=== PATIENT | female | born 1985 | race Caucasian/White ===

== ENCOUNTER 2018-02-26 15:34 | Emergency (ER) | payer OTHER ==
[2018-02-26] MEDS ORDERED: TETANUS/DIPHTHERIA/PERTUSSIS 0.5 ML SYRINGE IM ONE (15:57)
[2018-02-26 15:59] VITALS: BP 122/67
--- NOTE | 2018-02-26 16:00 | ED Physician Documentation ---
PD HPI UPPER EXT INJURY - Stated complaint Stated Complaint: R HAND LAC - History obtained from History obtained from: Patient - History of Present Illness Location: Right, Hand Type of injury: Laceration (on madolin slicer) Where injury occurred: Work Timing - onset: Today Pain level max: 0 Review of Systems Constitutional: reports: Reviewed and negative Cardiac: reports: Reviewed and negative Respiratory: reports: Reviewed and negative PD PAST MEDICAL HISTORY - Present Medications Home Medications: Ambulatory Orders Medication Instructions Recorded Confirmed No Known Home Medications [No 02/26/18 02/26/18 Known Home Medications] - Allergies Allergies/Adverse Reactions: Allergies Allergy/AdvReac Type Severity Reaction Status Date / Time No Known Drug Allergies Allergy Verified 02/26/18 15:59 PD ED PE NORMAL - Vitals Vital signs reviewed: Yes - General General: Alert and oriented X 3, No acute distress - Extremities Extremities: Other (1 cm shallow lac R hand on medial side/hypothenenar area) - Neuro Neuro: Alert and oriented X 3, Normal speech Results - Vitals Vitals: Vital Signs - 24 hr 02/26/18 15:56 Temperature 36.8 C Heart Rate 92 Respiratory 16 Rate Blood Pressure 122/67 O2 Saturation 98 Oxygen O2 Source Room air Procedures - Laceration (location) R hand Length in cm: 1 Wound type: Linear, Superficial Wound Preparation: Irrigated copiously NS Skin layer closure: Dermabond Other: Tetanus booster given Complexity: Simple Departure - Departure Disposition: 01 Home, Self Care Clinical Impression: Laceration of right hand Qualifiers: Encounter type: initial encounter Foreign body presence: without foreign body Qualified Code(s): S61.411A - Laceration without foreign body of right hand, initial encounter Condition: Good Record reviewed to determine appropriate education?: Yes Instructions: ED Laceration Ext Skin Glue
== END 2018-02-26 16:39 | disposition home or self-care (01) ==
LOC: ED 15:34
DX: S61.411A Laceration without foreign body of right hand, initial encounter (principal); W26.0XXA Contact with knife, initial encounter; Z23 Encounter for immunization
CPT/HCPCS: 12001; 90471; 99282; 99283

== ENCOUNTER 2021-08-21 15:36 | Outpatient (CLI) | payer OTHER ==
[2021-08-21 16:58] VITALS: BP 120/86
--- NOTE | 2021-08-21 16:58 | SLEEP CARE CONSULTATION ---
Information from patient questionnaire entered by Nadir Fabian. I have reviewed and concur with the information entered by Nadir Fabian. This document represents the service I personally performed and the decisions made by me, Arabella Garcia ARNP. History of Present Illness Service Date and Time: 08/21/2021 1536 Reason for Visit: New patient Chief Complaint: reports: Unrefreshed sleep, Fatigue, Frequent awakenings at night Date of Onset: 1.5 years Usual bedtime: 9:00 PM Time it takes to fall asleep: 2-3 hrs Snores at night: No (Not really) Observed to quit breathing while asleep: No Sleeps alone due to snoring: No Number of times waking at night: 2-3 Reasons for waking at night: reports: Other (Unknown reason). denies: Choking, Snoring, Gasping for air Toss, Turn, or Twitch while sleeping: Yes Recalls having dreams: No (rarely remembers them) Usually gets out of bed at: 4:00-5:00 Feels refreshed in the morning: No Morning headache: Yes (30 min - 1 hour; 1-2 times a week) Sleepy or fatigued during the day: Yes Ever fallen asleep while driving: No Takes day naps: No Dreams during day naps: No Prior sleep studies: No Additional HPI information: I had the pleasure of seeing SHIVANI CHOI today regarding the possibility of her having a sleep disorder. Her current complaints are fatigue, frequent night awakenings, insomnia and unrefreshed sleep. Her has not told her she snores or has any pauses in breathing when sleeping. She has times when she wakes up shaking with her heart pounding. She states it does not happen every night but often enough to be disturbing. It can take 2-3 hours for her to fall asleep and she wakes up 2-3 times a night. She only sleeps 5-6 hours normally. She feels like she is only sleeping lightly on average. She has tried multiple o russel the counter remedies to go to sleep with varied results. She has some muscle relaxers for her chronic neck issues and this helps her sleep fall asleep better than anything else. She has a family history of sleep apnea. 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 Patient is and lives in [place]. Have you smoked in the past 12 months: No Alcohol use: No Caffeine use: Yes Caffeine amount and frequency: 2 cups, 1/2 caff coffee Family History Family history of sleep disordered breathing: Yes Family Hx Sleep Apnea: Father: Sleep apnea - Untreated, Grandparent: Sleep apnea - Treated (Uncle), Other: Sleep apnea - Treated Allergies and Home Medications Drug allergies reviewed: Yes (NKDA) Home medication list reviewed: Yes Allergy and home medication list: Cyclobenzaprine, prn for chronic neck issues Review of Systems Cardiovascular: denies: high blood pressure Gastrointestinal: reports: nausea. denies: heartburn Neurological: denies: headaches Psychiatric: denies: anxiety, depression, mood disorder Ear/Nose/Throat: reports: wisdom teeth removed. denies: injury to nose, tonsillectomy Musculoskeletal: reports: neck pain Immunologic: reports: allergies to food or environment (occasional seasonal allergies) Physical Exam Blood Pressure: 120/86 Cuff size: wrist Heart Rate: 84 O2 Saturation: 99 Height: 5 ft 1 in Weight: 126 lb Body Mass Index: 23.8 BMI Classification: Healthy weight Neck circumference: 13 (inches) Nostrils: patent to airflow Mouth and throat: narrow oropharynx Soft palate: long Hard palate: normal Uvula: normal Uvula visualization: 100% Mallampati Class I Tongue: enlarged in size with teeth hickey on lateral edges Neck: normal w/o lymphadenopathy or thyromegaly Heart: regular rate and rhythm Lungs: clear bilaterally Impression and Plan 1. Suspected Obstructive Sleep Apnea-Hypopnea Syndrome, as suggested by a history of morning headache, frequent awakening during the night, unrefreshed sleep, and excessive daytime sleepiness. Narrow oropharynx and obesity are common predisposing factors for obstructive sleep apnea-hypopnea syndrome. I recommend proceeding to polysomnography to confirm the diagnosis and to assess severity. If the patient has significant sleep disordered breathing, a manual CPAP titration study will also be performed to find the optimal treatment pressure. I informed the patient of what the sleep studies involve and after so me discussion, obtained agreement to proceed. The pathophysiology of obstructive sleep apnea-hypopnea syndrome was discussed with the patient and health risks of cardiovascular and cerebrovascular disease if not treated. 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 Patient agreed to plan. * Schedule polysomnography +- manual CPAP titration study and return in 1-2 weeks after the study to discuss result and initiate therapy. * Avoid long distance driving or driving when feeling sleepy. * Avoid alcohol, sedative and muscle relaxant around bedtime. * Attempt to lose weight. * Review instructions provided by trained office staff on how to prepare for the sleep study. * Return for follow-up after sleep study completed. Counseling Topics: Weight control Visit Type: In Office Time Spent with Patient (minutes): 30 Provider Statement: I spent 100% of the Face to Face Visit with the patient with greater than 50% spent counseling the patient and coordination of care.
== END 2021-08-21 15:37 | disposition home or self-care (01) ==
LOC: SC 15:36
PROVIDERS: ATTEND Nurse Practitioner Family
DX: R51.9 Headache, unspecified (principal); G47.8 Other sleep disorders; G47.10 Hypersomnia, unspecified
CPT/HCPCS: 99203; 99212

== ENCOUNTER 2021-09-25 19:16 | Outpatient (CLI) | payer OTHER | END 2021-09-25 19:17 | disposition home or self-care (01) | LOC: SC 19:16 | PROVIDERS: ATTEND Nurse Practitioner Family | DX: G47.8 Other sleep disorders (principal); R51.9 Headache, unspecified; G47.00 Insomnia, unspecified; R53.83 Other fatigue; G47.10 Hypersomnia, unspecified | CPT/HCPCS: 95810 ==

== ENCOUNTER 2021-10-18 09:16 | Outpatient (CLI) | payer OTHER ==
--- NOTE | 2021-10-18 09:37 | SLEEP CARE CONSULTATION ---
Information from patient questionnaire entered by Cecile Lal MA. I have reviewed and concur with the information entered by Cecile Lal MA. This document represents the service I personally performed and the decisions made by , Arabella Garcia ARNP. History of Present Illness Service Date and Time: 10/18/2021 0916 Initial [place] Sleepiness Scale score: 2 (in 2020) Current [place] Sleepiness Scale score: 2 Additional HPI information: SHIVANI CHOI returns via video Telehealth visit for follow up and results of the recently performed polysomnography. The patient was informed of the following findings: No significant sleep disordered breathing with an average AHI of 0.4 and sayra oxygen saturation of 94%. She had no audible snore. There were several prolonged awakenings in the second half of the night. I explained the pathophysiology behind obstructive sleep apnea. Patient does not have sleep apnea and was advised how weight gain could increase the risk of developing sleep apnea in the future. Patient does not drink alcohol. Patient was cautioned about risks of drowsy driving until sleepiness symptoms resolve. Patient denies drowsy driving. Sleep Study - Results Prior sleep studies: No Polysomnography/Home Sleep Study results: IMPRESSION: The quality of the study is good. The patient had slightly reduced sleep efficiency due to several awakenings in the first half of the night. The sleep architecture was normal. Respiratory monitoring showed no evidence of sleep disordered breathing (AHI = 0.4) or hypoxia (sayra oxygen saturation of 94%). The patient slept adequately in supine position (supine AHI = 0.0; non-supine = 0.40). No audible snore. There was no significant periodic leg movement of sleep. Cardiac rhythm was normal sinus rhythm without significant arrhythmia. No abnormal behavior (parasomnia) observed during the night. Allergies and Home Medications Home medication list reviewed: Yes (no changes) Review of Systems Review of systems same as previous: Yes (no changes) Physical Exam Vital signs obtained and entered by: Telehealth visit to reduce exposure during Covid pandemic Height: 5 ft 1 in Impression and Plan 1. Insomnia, unspecified. Insomnia is generally caused by an irregular sleep schedule, spending too much time in bed, napping, caffeine, electronics, lack of a relaxing bedtime ritual and clock watching. Other factors can include anxiety/depression, pain, and medications. First I counseled the patient on the importance of a regular sleep schedule, starting with the wake time. I explained the homestatic sleep drive and how maintaining a regular wake time will allow the patient to be tired enough to sleep 15-16 hours later. By waking at the same time, the patient will also feel more alert. This can also be assisted by exposure to bright light for a minimum of 15 minutes a day upon waking. Additionally too much time spent in bed can cause more sleep disruption as most people only need 7-9 hours of sleep. Thus patient advised to restrict time in bed to 7-8 hours. Naps are to be avoided unless overcome by sleepiness. Then naps are to be restricted to one hour and before 3 pm so as not to interfere with nighttime sleep. Most caffeine is to be stopped after lunch as it has a 6 hour half life and reduce sleep latency and efficiency. In addition, it is important to have a relaxing ritual about 30-60 minutes before bedtime to allow the mind/body transition from an active day to sleep. Electronics should be avoided 1-2 hours before bedtime as the bright light can reduce the endogenous melatonin and the activity of the computer, tablet, cell phone etc can be alerting. TV is okay but content needs to be relaxing and the brightness dimmed. A warm bath or shower is another way to assist transition to sleep. In addition, it is important to have a sleep environment conducive to sleep such as a comfortable bed, comfortable temperature and quiet. * Maintain a healthy weight. * Return as needed for follow up. Counseling Topics: Weight control Visit Type: Telehealth Video Video Type: VSee Patient Location: Home Location of Provider: Office Patient agrees and consents to this telehealth visit type: Yes Patient agrees to have their insurance billed: Yes Time Spent with Patient (minutes): 11 Provider Statement: I spent 100% of the Telehealth Video Call with the patient with greater than 50% spent counseling the patient and coordination of care.
== END 2021-10-18 09:17 | disposition home or self-care (01) ==
LOC: SC 09:16
PROVIDERS: ATTEND Nurse Practitioner Family
DX: G47.00 Insomnia, unspecified (principal)